=== PATIENT | female | born 2000 | race Hispanic/Latino ===

== ENCOUNTER 2023-06-16 21:47 | Day surgery (SDC) | payer MEDICAID, OTHER ==
[2023-06-16 22:08] VITALS: BMI 34.3
[2023-06-16 22:56] LABS: #Basophils 0.05 10x3/uL (0.0-0.2); #Eosinphils 0.09 10x3/uL (0.0-0.5); #Monocytes 0.81 10x3/uL (0.0-1.1); #Neutrophils 7.38 10x3/uL (1.5-8.4); %Basophils 0.5 % (0.0-2.0); %Eosinophils 0.8 % (0.0-6.0); %Lymphocytes 23.3 % (18.0-47.0); %Monocytes 7.4 % (0.0-10.0); %Neutrophils 67.3 % (40.0-75.0); Hematocrit 34.3 % (34.9-44.5); Hemoglobin 11.8 g/dL (12.0-15.5); Mean Corpuscular HGB CONC 34.4 g/dL (32.0-36.0); Mean Platelet Volume 10.1 fl (7.4-10.4); Platelet Count 264 10x3/uL (150-450); RBC Distribution Width 14.5 % (11.5-14.5); Red Blood Cell (RBC) Count 3.81 10x6/uL (3.90-5.03)
== END 2023-06-17 00:08 | disposition home or self-care (01) ==
LOC: CSHLD/OP 21:47
PROVIDERS: ATTEND Obstetrics & Gynecology
DX: O47.03 False labor before 37 completed weeks of gestation, third trimester (principal); O46.93 Antepartum hemorrhage, unspecified, third trimester; Z79.899 Other long term (current) drug therapy; Z3A.32 32 weeks gestation of pregnancy
CPT/HCPCS: 76815; 85025; 86900; 86901

== ENCOUNTER 2023-07-30 16:26 | Inpatient (IN) | payer MEDICAID, SELFPAY ==
[2023-07-30 17:52] VITALS: BMI 32.8
[2023-08-01 07:53] VITALS: BP 103/59; TEMP 98.5
== END 2023-08-01 18:20 | disposition home or self-care (01) | DRG 807 ==
LOC: CSHLD/OP 16:26 → CSHLD 17:58 → CSHPP 07-31 05:00
PROVIDERS: ADMIT Family Medicine; ATTEND Family Medicine
PROC: 10E0XZZ Delivery of Products of Conception, External Approach (ICD-10-PCS; principal; 2023-07-31)
DX: O80 Encounter for full-term uncomplicated delivery (principal); Z37.0 Single live birth; Z3A.39 39 weeks gestation of pregnancy
CPT/HCPCS: 51702; 84112; 85027; 86762; 86780; 86850; 86900; 86901; 87340; 87389; 99285; J3010